=== PATIENT | male | born 1960 | race Caucasian/White ===

== ENCOUNTER 2018-02-09 16:46 | Emergency (ER) | payer OTHER ==
[~2018-02-09] VITALS: Ht 180.3 cm; Wt 120.5 kg
[~2018-02-09 16:46] MED LIST: FLOMAX0.4 MG PO; FORTE-PLUS-241 CAP PO; HYDRODIURIL25 MG PO; KETOROLAC10 MG PO; NORCO 325 MG-51 TAB PO
[2018-02-09] MEDS ORDERED: AMINO ACID1 EACH (16:57)
[2018-02-09] MEDS ORDERED: MASON NATURAL G1 CAP (16:57)
[2018-02-09] MEDS ORDERED: DHA PO (16:57)
[2018-02-09 18:30] LABS: ALBUMIN 3.9 g/dL (3.5-5.0); BUN/CREATININE RATIO 18.5 (6.0-26.0); CALCIUM 9.2 mg/dL (8.4-10.2); POTASSIUM 3.2 mmol/L (3.6-5.0); TOTAL BILIRUBIN 0.4 mg/dL (0.2-1.3); TOTAL PROTEIN 7.4 g/dL (6.3-8.2)
[2018-02-09 18:34] LABS: EOS # 0.2 (0.04-0.40); EOS % 1.3 % (0.0-4.0); HEMATOCRIT 46.5 % (42.0-52.0); HEMOGLOBIN 16.1 g/dL (13.5-18.0); LYMPH# 3.7 (1.50-4.00); MEAN CELL VOLUME 88 fl (78-100); MEAN CORPUSCULAR HEMOGLOBIN 31 pg (27-31); MEAN CORPUSCULAR HGB CONC 35 g/dL (33-37); MEAN PLATELET VOLUME 9.9 fl (7.4-10.4); MONO # 1.2 (0.20-0.80); NEU # 6.4 (1.40-6.50); PLATELET COUNT 278 K/mm3 (130-400); RED BLOOD COUNT 5.28 M/mm3 (4.20-5.60); RED CELL DISTRIBUTION WIDTH 12.4 % (11.5-14.5); WHITE BLOOD COUNT 11.4 K/mm3 (4.8-10.8)
[2018-02-09 18:48] LABS: URINE APPEARANCE HAZY; URINE BILIRUBIN NEGATIVE (NEGATIVE); URINE BLOOD 250 ery/uL (NEGATIVE); URINE COLOR YELLOW; URINE GLUCOSE NEGATIVE (NEGATIVE); URINE KETONE NEGATIVE (NEGATIVE); URINE LEUKOCYTE ESTERASE NEGATIVE (NEGATIVE); URINE NITRATE NEGATIVE (NEGATIVE); URINE PROTEIN(semi-quant) TRACE mg/dL (NEGATIVE); URINE UROBILINOGEN NORMAL (NORMAL)
[2018-02-09] MEDS ORDERED: PERCOCET 325 MG1 TA2 PO (19:26)
[2018-02-09 19:41] VITALS: BP 183/93
== END 2018-02-09 19:41 | disposition home or self-care (01) ==
LOC: ED 16:46
PROVIDERS: Nurse Practitioner
DX: N20.0 Calculus of kidney (principal); Z87.442 Personal history of urinary calculi; Z88.8 Allergy status to other drugs, medicaments and biological substances
CPT/HCPCS: J1885; J2405; J3010; J7030; Q9967

== ENCOUNTER 2018-05-26 16:24 | Emergency (ER) | payer OTHER ==
[~2018-05-26] VITALS: Ht 180.3 cm; Wt 115.9 kg
[~2018-05-26 16:24] MED LIST changes: +AMINO ACID1 EACH; +DHA PO; +MASON NATURAL G1 CAP; +PERCOCET 325 MG1 TA2 PO
[2018-05-26] MEDS ORDERED: ASPIR LOW81 MG PO (16:37)
[2018-05-26 17:38] LABS: D-DIMER 2.12 mg/L FEU (0.15-0.50)
[2018-05-26 19:12] VITALS: BP 188/110
== END 2018-05-26 19:12 | disposition home or self-care (01) ==
LOC: ED 16:24
PROVIDERS: Nurse Practitioner Family
DX: M79.89 Other specified soft tissue disorders (principal); I10 Essential (primary) hypertension; R79.89 Other specified abnormal findings of blood chemistry; R60.9 Edema, unspecified; Z98.890 Other specified postprocedural states
CPT/HCPCS: J1650

== ENCOUNTER → 2018-05-27 | Outpatient (CLI) | payer OTHER ==
[2018-05-26 19:12] VITALS: BP 188/110
[~2018-05-27] MED LIST changes: +ASPIR LOW81 MG PO
[2018-05-27 11:11] LABS: EOS # 0.1 (0.04-0.40); EOS % 2.4 % (0.0-4.0); HEMATOCRIT 43.8 % (42.0-52.0); HEMOGLOBIN 15.1 g/dL (13.5-18.0); LYMPH# 2.7 (1.50-4.00); MEAN CELL VOLUME 89 fl (78-100); MEAN CORPUSCULAR HEMOGLOBIN 31 pg (27-31); MEAN CORPUSCULAR HGB CONC 35 g/dL (33-37); MEAN PLATELET VOLUME 8.8 fl (7.4-10.4); MONO # 0.6 (0.20-0.80); NEU # 2.4 (1.40-6.50); PLATELET COUNT 392 K/mm3 (130-400); RED BLOOD COUNT 4.92 M/mm3 (4.20-5.60); RED CELL DISTRIBUTION WIDTH 12.6 % (11.5-14.5); WHITE BLOOD COUNT 5.8 K/mm3 (4.8-10.8)
== END ==
LOC: LAB 08:15 → RAD 08:15
PROVIDERS: Nurse Practitioner Family
DX: Z47.89 Encounter for other orthopedic aftercare (principal); I82.4Z2 Acute embolism and thrombosis of unspecified deep veins of left distal lower extremity

== ENCOUNTER 2018-06-17 08:00 | Outpatient (RCR) | payer OTHER | END 2018-06-17 08:30 | disposition home or self-care (01) | LOC: PT 08:00 | DX: Z47.89 Encounter for other orthopedic aftercare (principal) ==

== ENCOUNTER 2018-07-09 17:02 | Emergency (ER) | payer OTHER ==
[~2018-07-09] VITALS: Ht 180.3 cm; Wt 115.9 kg
[2018-07-09] MEDS ORDERED: XARELTO20 MG PO (17:16)
[2018-07-09 17:50] LABS: EOS # 0.2 (0.04-0.40); EOS % 1.8 % (0.0-4.0); HEMATOCRIT 45.6 % (42.0-52.0); HEMOGLOBIN 15.9 g/dL (13.5-18.0); LYMPH# 2.4 (1.50-4.00); MEAN CELL VOLUME 89 fl (78-100); MEAN CORPUSCULAR HEMOGLOBIN 31 pg (27-31); MEAN CORPUSCULAR HGB CONC 35 g/dL (33-37); MONO # 0.8 (0.20-0.80); NEU # 5.1 (1.40-6.50); PLATELET COUNT 219 K/mm3 (130-400); RED BLOOD COUNT 5.15 M/mm3 (4.20-5.60); RED CELL DISTRIBUTION WIDTH 12.6 % (11.5-14.5); WHITE BLOOD COUNT 8.5 K/mm3 (4.8-10.8)
[2018-07-09 18:52] LABS: URINE APPEARANCE CLOUDY; URINE COLOR YELLOW
[2018-07-09 18:53] LABS: PH-URINE 7.5 (5.0 - 8.0); URINE BILIRUBIN NEGATIVE (NEGATIVE); URINE BLOOD 250 ery/uL (NEGATIVE); URINE GLUCOSE NEGATIVE (NEGATIVE); URINE KETONE NEGATIVE (NEGATIVE); URINE LEUKOCYTE ESTERASE NEGATIVE (NEGATIVE); URINE NITRATE NEGATIVE (NEGATIVE); URINE PROTEIN(semi-quant) 1+ mg/dL (NEGATIVE); URINE UROBILINOGEN NORMAL (NORMAL); URINE WBC 0-1 /hpf (0-3)
[2018-07-09] MEDS ORDERED: PERCOCET 325 MG1 TA2 PO (20:35)
[2018-07-09] MEDS ORDERED: SEPTRA DS 8001 TAB PO (20:35)
[2018-07-09] MEDS ORDERED: ZOFRAN ODT4 MG PO (20:37)
[2018-07-09 20:46] VITALS: BP 169/105
== END 2018-07-09 20:46 | disposition home or self-care (01) ==
LOC: ED 17:02
PROVIDERS: Family Medicine
DX: N13.2 Hydronephrosis with renal and ureteral calculous obstruction (principal); Z87.442 Personal history of urinary calculi; Z86.718 Personal history of other venous thrombosis and embolism; Z79.01 Long term (current) use of anticoagulants; Z79.899 Other long term (current) drug therapy
CPT/HCPCS: J1885; J2405; J3010; J7030

== ENCOUNTER → 2018-08-30 | Outpatient (CLI) | payer OTHER ==
[~2018-08-30] MED LIST changes: +SEPTRA DS 8001 TAB PO; +XARELTO20 MG PO; +ZOFRAN ODT4 MG PO
== END ==
LOC: RAD 07:54
DX: I82.402 Acute embolism and thrombosis of unspecified deep veins of left lower extremity (principal)

== ENCOUNTER → 2019-09-05 | Outpatient (CLI) | payer OTHER | LOC: LAB 15:45 | DX: R35.1 Nocturia (principal) ==

== ENCOUNTER → 2020-09-04 | Outpatient (CLI) | payer OTHER | LOC: LAB 15:53 | DX: R35.1 Nocturia (principal) ==

== ENCOUNTER 2022-10-15 13:44 | Emergency (ER) | payer OTHER ==
[2022-10-15] MEDS ORDERED: LOSARTAN POTASS50 M1 PO (14:12)
[2022-10-15 14:21] LABS: ALBUMIN 4.3 g/dL (3.4-4.8)
[2022-10-15 14:22] LABS: POTASSIUM 3.5 mmol/L (3.5-5.1)
[2022-10-15 14:23] LABS: CALCIUM 9.4 mg/dL (8.3-10.5)
[2022-10-15 14:24] LABS: HEMATOCRIT 43.8 % (42.0-52.0); HEMOGLOBIN 14.5 g/dL (13.5-18.0); MEAN CELL VOLUME 88 fl (78-100); MEAN CORPUSCULAR HEMOGLOBIN 29 pg (27-31); MEAN CORPUSCULAR HGB CONC 33 g/dL (33-37); MEAN PLATELET VOLUME 9.1 fl (7.4-10.4); PLATELET COUNT 217 K/mm3 (130-400); RED BLOOD COUNT 4.99 M/mm3 (4.20-5.60); RED CELL DISTRIBUTION WIDTH 12.3 % (11.5-14.5); TOTAL PROTEIN 6.7 g/dL (6.2-8.1); WHITE BLOOD COUNT 10.8 K/mm3 (4.8-10.8)
[2022-10-15 14:26] LABS: TOTAL BILIRUBIN 0.6 mg/dL (0.2-1.2)
[2022-10-15 15:43] LABS: LYMPHOCYTE 54 % (20-51); MONOCYTE 8 % (3-10); NEUTROPHILS 34 % (42-75)
[2022-10-15] MEDS ORDERED: ONDANSETRON HYDR4 MG PO (16:43)
[2022-10-15] MEDS ORDERED: NORCO 325 MG-51 TA1 PO (16:43)
[2022-10-15 17:47] VITALS: BP 147/79
[2022-10-15 18:37] LABS: URINE APPEARANCE HAZY; URINE BILIRUBIN NEGATIVE (NEGATIVE); URINE BLOOD 250 ery/uL (NEGATIVE); URINE COLOR YELLOW; URINE GLUCOSE NEGATIVE (NEGATIVE); URINE KETONE NEGATIVE (NEGATIVE); URINE LEUKOCYTE ESTERASE NEGATIVE (NEGATIVE); URINE NITRATE NEGATIVE (NEGATIVE); URINE PROTEIN(semi-quant) 2+ (NEGATIVE); URINE UROBILINOGEN NORMAL (NORMAL)
[2022-10-15 18:38] LABS: URINE MUCUS PRESENT (NOT PRESENT)
== END 2022-10-15 17:24 | disposition home or self-care (01) ==
LOC: ED 13:44
PROVIDERS: Physician Assistant
DX: N28.89 Other specified disorders of kidney and ureter (principal); Z87.442 Personal history of urinary calculi; Z98.890 Other specified postprocedural states
CPT/HCPCS: J1885; J2405; J7030; Q9967

== ENCOUNTER → 2023-01-26 | Outpatient (CLI) | payer OTHER ==
[~2023-01-26] MED LIST changes: +LOSARTAN POTASS50 M1 PO; +NORCO 325 MG-51 TA1 PO; +ONDANSETRON HYDR4 MG PO
== END ==
LOC: RAD 11:54
DX: Z01.810 Encounter for preprocedural cardiovascular examination (principal); N28.89 Other specified disorders of kidney and ureter

== ENCOUNTER → 2023-07-23 | Outpatient (CLI) | payer OTHER | LOC: LAB 10:48 | DX: R93.421 Abnormal radiologic findings on diagnostic imaging of right kidney (principal); N40.1 Benign prostatic hyperplasia with lower urinary tract symptoms; R39.12 Poor urinary stream ==

== ENCOUNTER → 2023-07-26 | Outpatient (CLI) | payer OTHER | LOC: RAD 09:38 | DX: N20.0 Calculus of kidney (principal); N32.9 Bladder disorder, unspecified; R93.421 Abnormal radiologic findings on diagnostic imaging of right kidney; N40.1 Benign prostatic hyperplasia with lower urinary tract symptoms; Z90.5 Acquired absence of kidney | CPT/HCPCS: Q9967 ==

== ENCOUNTER → 2023-09-28 | Day surgery (SDC) | payer OTHER | END | disposition home or self-care (01) | LOC: MSO 08:09 | DX: E11.36 Type 2 diabetes mellitus with diabetic cataract (principal); H25.811 Combined forms of age-related cataract, right eye; G47.33 Obstructive sleep apnea (adult) (pediatric) | CPT/HCPCS: 00142; J0171; J2250; V2632 ==

== ENCOUNTER → 2023-11-03 | Day surgery (SDC) | payer OTHER | END | disposition home or self-care (01) | LOC: MSO 12:00 | DX: H25.812 Combined forms of age-related cataract, left eye (principal) | CPT/HCPCS: 00142; J0171; J2250; V2632 ==

== ENCOUNTER → 2024-01-04 | Outpatient (CLI) | payer OTHER | LOC: LAB 11:36 | DX: C64.1 Malignant neoplasm of right kidney, except renal pelvis (principal) ==

== ENCOUNTER → 2024-03-09 | Outpatient (CLI) | payer OTHER ==
[2024-03-09 14:01] LABS: BASO # 0.02 K/mm3 (0.02-0.10); EOS # 0.26 K/mm3 (0.04-0.40); EOS % 3.4 % (0.0-4.0); HEMATOCRIT 36.8 % (42.0-52.0); HEMOGLOBIN 11.8 g/dL (13.5-18.0); LYMPH# 2.87 K/mm3 (1.50-4.00); MEAN CELL VOLUME 86 fl (78-100); MEAN CORPUSCULAR HEMOGLOBIN 28 pg (27-31); MEAN CORPUSCULAR HGB CONC 32 g/dL (33-37); MEAN PLATELET VOLUME 8.3 fl (7.4-10.4); MONO # 0.53 K/mm3 (0.20-0.80); NEU # 3.86 K/mm3 (1.40-6.50); PLATELET COUNT 393 K/mm3 (130-400); RED BLOOD COUNT 4.28 M/mm3 (4.20-5.60); RED CELL DISTRIBUTION WIDTH 12.4 % (11.5-14.5); WHITE BLOOD COUNT 7.6 K/mm3 (4.8-10.8)
[2024-03-09 14:32] LABS: ALBUMIN 3.8 g/dL (3.4-4.8)
[2024-03-09 14:33] LABS: CALCIUM 9.7 mg/dL (8.3-10.5)
[2024-03-09 14:34] LABS: TOTAL PROTEIN 6.8 g/dL (6.2-8.1)
[2024-03-09 14:36] LABS: TOTAL BILIRUBIN 0.4 mg/dL (0.2-1.2)
== END ==
LOC: LAB 13:49
PROVIDERS: Internal Medicine
DX: C64.1 Malignant neoplasm of right kidney, except renal pelvis (principal)

== ENCOUNTER → 2024-03-29 | Outpatient (CLI) | payer OTHER ==
[2024-05-21 11:22] LABS: CALCIUM 9.6 mg/dL (8.3-10.5); TOTAL BILIRUBIN 0.4 mg/dL (0.2-1.2); TOTAL PROTEIN 6.6 g/dL (6.2-8.1)
[2024-05-21 11:26] LABS: BASO # 0.03 K/mm3 (0.02-0.10); EOS # 0.41 K/mm3 (0.04-0.40); EOS % 5.7 % (0.0-4.0); HEMATOCRIT 49.5 % (42.0-52.0); HEMOGLOBIN 15.8 g/dL (13.5-18.0); LYMPH# 1.91 K/mm3 (1.50-4.00); MEAN CELL VOLUME 85 fl (78-100); MEAN CORPUSCULAR HEMOGLOBIN 27 pg (27-31); MEAN CORPUSCULAR HGB CONC 32 g/dL (33-37); MEAN PLATELET VOLUME 8.5 fl (7.4-10.4); MONO # 0.65 K/mm3 (0.20-0.80); NEU # 4.16 K/mm3 (1.40-6.50); PLATELET COUNT 228 K/mm3 (130-400); RED BLOOD COUNT 5.85 M/mm3 (4.20-5.60); RED CELL DISTRIBUTION WIDTH 13.2 % (11.5-14.5); WHITE BLOOD COUNT 7.2 K/mm3 (4.8-10.8)
== END ==
LOC: LAB 08:00
PROVIDERS: Internal Medicine
DX: C64.1 Malignant neoplasm of right kidney, except renal pelvis (principal)

== ENCOUNTER → 2024-04-19 | Outpatient (CLI) | payer OTHER ==
[2024-04-19 09:52] LABS: BASO # 0.06 K/mm3 (0.02-0.10); EOS # 1.16 K/mm3 (0.04-0.40); HEMATOCRIT 32.9 % (42.0-52.0); HEMOGLOBIN 10.8 g/dL (13.5-18.0); LYMPH# 1.37 K/mm3 (1.50-4.00); MEAN CELL VOLUME 81 fl (78-100); MEAN CORPUSCULAR HEMOGLOBIN 27 pg (27-31); MEAN CORPUSCULAR HGB CONC 33 g/dL (33-37); MEAN PLATELET VOLUME 8.3 fl (7.4-10.4); MONO # 0.76 K/mm3 (0.20-0.80); NEU # 2.72 K/mm3 (1.40-6.50); PLATELET COUNT 390 K/mm3 (130-400); RED BLOOD COUNT 4.07 M/mm3 (4.20-5.60); RED CELL DISTRIBUTION WIDTH 13.5 % (11.5-14.5); WHITE BLOOD COUNT 6.1 K/mm3 (4.8-10.8)
[2024-04-19 09:54] LABS: ALBUMIN 3.3 g/dL (3.4-4.8)
[2024-04-19 09:55] LABS: CALCIUM 8.8 mg/dL (8.3-10.5)
[2024-04-19 09:56] LABS: TOTAL PROTEIN 5.7 g/dL (6.2-8.1)
[2024-04-19 09:58] LABS: TOTAL BILIRUBIN 0.8 mg/dL (0.2-1.2)
== END ==
LOC: LAB 09:34
PROVIDERS: Internal Medicine
DX: C64.1 Malignant neoplasm of right kidney, except renal pelvis (principal)